=== PATIENT | female | born 1940 | race Caucasian/White ===

== ENCOUNTER 2016-05-19 20:14 | Emergency (ER) | payer OTHER, BC ==
[~2016-05-19] VITALS: Ht 172.7 cm; Wt 72.1 kg
[~2016-05-19 20:14] MED LIST: CALCIUM 600 +1 EAC1 PO; CELEXA 20 MG TA20 M1; CELEXA20 MG PO; CIPRO500 MG PO; CLONAZEPAM 0.50.5 M1; CLONAZEPAM 0.50.5 M1 PO; COLACE100 MG PO; FLAGYL500 MG PO; HYZAAR 50-12.51 TAB PO; LEVOTHYROXIN0.137 M1; LEVOTHYROXINE 0.1 MG PO; LOMOTIL TABLET1 EACH; LOSARTAN-HCTZ1 EAC3; NORCO 5-325 TA1 EACH PO; OMEPRAZOLE 20 M20 M1; PROBIOTIC 4X C1 EACH; PROBIOTIC1 EAC2 PO; PROTONIX40 M1 PO; TYLENOL325 MG PO; VITAMIN B-12500 MCG PO; VITAMIN D1000 UNI1 PO
[2016-05-19] MEDS ORDERED: AMBIEN 5 MG TABL5 M1 PO (20:36)
[2016-05-19] MEDS ORDERED: LIORESAL 10 MG10 MG PO (21:47)
[2016-05-19] MEDS ORDERED: NORCO 5-325 TA1 EACH PO (21:47)
[2016-05-19] MEDS ORDERED: NEURONTIN 300300 M1 PO (21:47)
[2016-05-19] MEDS ORDERED: SENOKOT-S1 TA1 PO (21:48)
[2016-05-26] MEDS ORDERED: MOBIC7.5 MG PO (09:27)
[2016-07-10] MEDS ORDERED: MIRALAX17 GM PO (11:13)
== END 2016-05-19 21:57 | disposition home or self-care (01) ==
LOC: ER 20:14 → EDBD 20:14 → ER 20:14
DX: M54.30 Sciatica, unspecified side (principal); I10 Essential (primary) hypertension; E03.9 Hypothyroidism, unspecified; F41.9 Anxiety disorder, unspecified; K21.9 Gastro-esophageal reflux disease without esophagitis; Z90.89 Acquired absence of other organs; Z87.891 Personal history of nicotine dependence

== ENCOUNTER 2016-05-25 10:56 | Emergency (ER) | payer OTHER, BC ==
[~2016-05-25] VITALS: Ht 172.7 cm; Wt 72.6 kg
[~2016-05-25 10:56] MED LIST changes: +AMBIEN 5 MG TABL5 M1 PO; +LIORESAL 10 MG10 MG PO; +NEURONTIN 300300 M1 PO; +SENOKOT-S1 TA1 PO
[2016-05-25 11:22] LABS: HEMATOCRIT 38.8 % (37.0-47.0); HEMOGLOBIN 13.2 gm/dL (12.0-15.0); MCH 33.7 pg (26.0-34.0); MCHC 34.1 % (28.0-37.0); MCV 98.8 fL (80.0-100.0); RBC 3.93 mil/uL (4.20-5.00); RDW 13.7 % (10.5-14.5); WBC 8.6 thou/uL (4.0-11.0)
[2016-05-25] MEDS ORDERED: CITRATE OF MAG296 ML PO (11:38)
[2016-05-25] MEDS ORDERED: COLACE100 MG PO (11:38)
[2016-05-26] MEDS ORDERED: MOBIC7.5 MG PO (09:27)
[2016-07-10] MEDS ORDERED: MIRALAX17 GM PO (11:13)
== END 2016-05-25 12:09 | disposition home or self-care (01) ==
LOC: ER 10:56 → EDBD 10:56 → ER 12:09
PROVIDERS: Emergency Medicine
DX: K59.00 Constipation, unspecified (principal); K62.5 Hemorrhage of anus and rectum; F41.9 Anxiety disorder, unspecified; I10 Essential (primary) hypertension; F10.99 Alcohol use, unspecified with unspecified alcohol-induced disorder; Z96.652 Presence of left artificial knee joint; Z87.891 Personal history of nicotine dependence

== ENCOUNTER → 2016-05-26 | Outpatient (CLI) | payer OTHER, BC ==
[~2016-05-26] VITALS: Ht 167.6 cm; Wt 73.5 kg
[~2016-05-26] MED LIST changes: +CITRATE OF MAG296 ML PO; +MIRALAX17 GM PO; +MOBIC7.5 MG PO
--- NOTE | ~2016-05-26 | HPC ---
[facility] [place] [address] PAIN MANAGEMENT CONSULTATION Name: NE ARREOLA Room #: REG [facility].#: [id number] Admission: 05/26/16 Attend Phys: Virgilio Alanis DO Discharge: Date of : 39 Report #: [id number] THIS REPORT FOR: //name// CC: Amie Alanis DATE OF SERVICE: 05/26/2016 The patient is a 76-year-old female, seen in consultation at the request of Dr. Granados for evaluation of pain in low back and left lateral leg to foot. The patient notes she has had subjective weakness and a little bladder incontinence, present for greater than 6 weeks. She denies specific antecedent trauma and/or overuse. She states the pain has become quite problematic. She rates it anywhere from 8-10 on a 0-10 visual analog scale. She was given some hydrocodone but had to stop this due to constipation. Has taken baclofen and gabapentin, with some efficacy. She had been prior treated for cervical radicular and/or greater occipital symptoms at [facility]. Current issues seem to be unrelated. She currently describes pain that is steady, burning, shooting, aching, crushing, gnawing, sharp, stabbing, and tender. REVIEW OF SYSTEMS: Complete review of systems was attached to the chart, was gone over with the patient. She is . She does not smoke currently, quit some 31 years ago. Drinks alcohol socially. History of hypertension treated with losartan, hypothyroid treated with levothyroxine, gastroparesis by history, gastroesophageal reflux treated with Protonix. Some chronic anxiety and depression for which she takes citalopram. Had bladder suspension surgery in 2012 following a transvaginal hysterectomy, has had some intermittent urinary incontinence since then. Has been treated for skin cancer. Status post multiple orthopedic injuries including ORIF for broken wrist in 1990. ORIF for right ankle in 2005, left total knee arthroplasty in 2010. Paraesophageal fundoplication in 2011. Total hysterectomy as noted in 2012. The patient has been retired since 1993. Pain impact score is moderate. The patient was seen in the ER on 05/19/2016 for the aforementioned back and left hip and leg pain. X-ray showed no acute pathology in the hip. She was seen 2 days later on 05/21/2016 for rectal bleeding and constipation. PHYSICAL EXAMINATION: GENERAL: Reveals a 5 feet 8 inches, 160-pound female; BMI is 26.2 kg/m2. VITAL SIGNS: Blood pressure is 150/79, pulse 83, respirations 16. NEUROLOGIC: Cranial 2-12 are grossly intact. HEENT: Pupils are equal and reactive to light and accommodation. Extraocular muscles are intact. NECK: Thyroid is moderately enlarged. No nodules are noted. Cervical range of motion is adequate. Upper extremity [place] [address] PAIN MANAGEMENT CONSULTATION Name: NE ARREOLA Room #: REG [facility]#: [id number] Admission: 05/26/16 Attend Phys: Virgilio Alanis DO Discharge: Date of : 39 Report #: [id number] HEART: Regular and rhythmical without murmur. LUNGS: Clear to auscultation. EXTREMITIES: Rises from the chair using armrests, mildly antalgic gait. Lumbar flexion is good to 90 degrees, tender at the L4 area. Low back and right hip flexion is diminished in strength to about 3/5. All other muscle groups are about 4/5, patellar reflex is absent on the right, 0-1/4 on the left. Achilles reflexes 1/4 and symmetric. Nominally positive straight leg raise on the left. DIAGNOSTIC STUDIES: MRI from 05/23/2016 notes 5 mm anterolisthesis at L4-L5, with moderate left foraminal stenosis. ASSESSMENT: Symptomatic lumbar radiculopathy secondary to spinal stenosis and anterolisthesis. History of greater occipital neuralgia, relatively quiescent at present. History of hypertension, hypothyroidism, gastroparesis, gastroesophageal reflux, and chronic anxiety and depression. RECOMMENDATIONS: 1. We will start the patient on Meloxicam 7.5 mg one tablet a day with major meal; if this exacerbates gastroesophageal issues, discontinue. 2. Epidural injection under fluoroscopy today at L5-S1. 3. Follow up in 3 weeks for reevaluation and consideration for repeat injection versus left L4-L5 transforaminal epidural injection at next visit. Thank you for allowing me to participate in this patient's care. We will keep you abreast of her progress. PROCEDURE NOTE: Lumbar epidural injection under fluoroscopy. DESCRIPTION OF PROCEDURE: After both written and informed consent to include risk of spinal cord damage, increased pain, weakness and dural puncture, the patient was taken to the fluoroscopy suite, placed in the prone position. After sterile prep and drape, a skin wheal with lidocaine was raised. A 22-gauge epidural Tuohy needle was inserted in the midline at L5-S1 with good loss to resistance. Negative aspiration for cerebrospinal fluid or blood was noted. Then 1 mL of Omnipaque under biplanar fluoroscopy showed good spread within the epidural space. This was followed with 80 mg of triamcinolone plus 1 mL of 1.5% preservative-free Xylocaine, 0.5 mL Xylocaine was then injected to flush the needle; it was removed. The patient was monitored for an appropriate period of time and discharged in good and stable condition. <ELECTRONICALLY SIGNED> By: Virgilio Alanis DO 05/31/16 0729 [id number] [id number] Virgilio Alanis DO /nt
[2016-05-26 08:46] VITALS: BP 150/79
== END ==
LOC: EDBD 07:09 → PAIN 07:09
DX: M54.16 Radiculopathy, lumbar region (principal); M48.06 Spinal stenosis, lumbar region; M54.81 Occipital neuralgia; I10 Essential (primary) hypertension; E03.9 Hypothyroidism, unspecified; K21.9 Gastro-esophageal reflux disease without esophagitis; F41.8 Other specified anxiety disorders; F32.89 Other specified depressive episodes; K31.84 Gastroparesis; Z90.710 Acquired absence of both cervix and uterus; Z87.891 Personal history of nicotine dependence; Z96.652 Presence of left artificial knee joint

== ENCOUNTER → 2016-07-10 | Outpatient (CLI) | payer OTHER, BC ==
[~2016-07-10] VITALS: Ht 170.2 cm; Wt 69.9 kg
--- NOTE | ~2016-07-10 | HPC ---
[facility] [place] [address] PAIN MANAGEMENT CONSULTATION Name: MAXWELLNE SHARRI [facility] [id number] Admission: 07/10/16 Attend Phys: Virgilio Alanis DO Discharge: Date of : 39 Report #: [id number] THIS REPORT FOR: //name// CC: Amie Alanis The patient is a 76-year-old female, prior seen in the pain clinic 06/16/2016. She has history of lumbar and cervical radiculopathy. Last visit, she was doing well, but she was having increasing cervical radicular symptoms. We ordered MRI of the cervical spine. Returns to pain clinic today. I reviewed these images with her. They were obtained on 06/22/2016. She is complaining of pain primarily in the neck, right shoulder and arm. The MRI notes moderate spondylosis with disk space narrowing, most marked at C5-C6, subluxation at several levels. Symptoms are a little worse on the left but clinical symptoms are more on the right. ASSESSMENT: Symptomatic cervical radiculopathy. RECOMMENDATION AND PROCEDURE: Cervical epidural injection under fluoroscopy today. Follow up in 3 weeks for reevaluation. PROCEDURE NOTE: Cervical epidural injection under fluoroscopy. PROCEDURE: Cervical epidural steroid injection under fluoroscopy. PROCEDURE NOTE: After written and informed consent was obtained including risk of dural puncture, spinal cord trauma, paralysis and increased pain, the patient was taken to the fluoroscopy suite and placed in the prone position, with appropriate abdominal bolstering, neck was flexed, palms under the thighs. Skin was prepped with ChloraPrep. Sterile draping was applied. Skin wheal with 1% Xylocaine was raised. A 22-gauge 3-1/2 inch epidural Tuohy needle was placed via a midline approach at the C7-T1 interspace, advanced under biplanar fluoroscopy using continuous loss of resistance. With appropriate loss of resistance at the expected depth on lateral view, the glass loss of resistance syringe was disconnected. A low volume extension tubing was connected to the needle and a 5 mL syringe. Negative aspiration for cerebrospinal fluid or blood was noted. A 1 mL of Omnipaque was injected which showed spread within the epidural space on biplanar fluoroscopy. This was followed with 80 mg of triamcinolone plus 1 mL of 1.5% preservative Xylocaine. Needle was withdrawn to the interspinous ligament, 0.5 mL of Xylocaine was used to flush the needle. The needle was then completely withdrawn. The area was cleansed. Band-Aid was applied. The patient was allowed to move off the procedure table and ambulated [address] [address] PAIN MANAGEMENT CONSULTATION Name: NE ARREOLA Room #: REG [facility]#: [id number] Admission: 07/10/16 Attend Phys: Virgilio Alanis DO Discharge: Date of : 39 Report #: [id number] to the recovery room, monitored for an appropriate period of time, discharged in good and stable condition. <ELECTRONICALLY SIGNED> By: Virgilio Alanis DO 07/12/16 1209 [id number] [id number] Virgilio Alanis DO /nt
[2016-07-10 11:20] VITALS: BP 123/89
== END | disposition home or self-care (01) ==
LOC: PAIN 07:17
DX: M54.12 Radiculopathy, cervical region (principal); Z87.891 Personal history of nicotine dependence